=== PATIENT | male | born 1975 | race Caucasian/White ===

== ENCOUNTER 2017-06-13 01:30 | Emergency (ER) | payer BC ==
[~2017-06-13] VITALS: Ht 185.4 cm; Wt 129.3 kg
--- NOTE | ~2017-06-13 | EKG ---
PATIENT: RONNY RO UNIT #: [id number] Ventricular Rate: 101 BPM Atrial Rate: 101 BPM P-R Interval: 148 ms QRS Duration: 94 ms Q-T Interval: 366 ms QTC Calculation(Bezet): 474 ms P [place]: 58 degrees Calculated R [place]: 98 degrees Calculated T [place]: 52 degrees Diagnosis Line: Sinus tachycardia Diagnosis Line: Rightward axis Diagnosis Line: Low voltage QRS Diagnosis Line: Borderline ECG Diagnosis Line: No previous ECGs available Diagnosis Line: Confirmed by HILTON DIAZ MD ([id number]) on Diagnosis Line: 06/14/2017 8:28:05 AM INTERPRETING MD: JOE DEL CID
--- NOTE | ~2017-06-13 | CR72 ---
[facility] A Service of [facility] RADIOLOGY TEXT RESULTS PATIENT: RONNY RO LOCATION: [facility] : 77 UNIT #: [id number] AGE: [address]: Tor Rizvi DO SEX: M ORDER DR: [id number] [facility] [address] [place], [place] [address] [id number] E MR#: [id number] Acc #: [id number] NAME: RONNY RO : 1975 SEX: M STUDY DATE/TIME: 06/13/2017 2:15 UNIT: [facility] ROOM: STUDY DESCRIPTION: CR Chest Single View Portable Attending Physician: Tor Rizvi D.O. Ordering Physician: Ed Roddy Cooper M.D. Primary Care Physician: Joseph Wolff M.D. MEDICAL IMAGING REPORT This report is preliminary unless electronic signature is present EXAM Portable chest. INDICATIONS Chest pain and shortness of air tonight. PROCEDURE Frontal view of the chest. FINDINGS Upper limits of normal heart size. No dense consolidation pleural fluid or pneumothorax. IMPRESSION No active process. Dictated by... Froylan Courtney M.D. THIS IS AN ELECTRONICALLY VERIFIED REPORT Froylan Courtney M.D. at 06/13/2017 9:50 PM EED/bd TD: 06/13/2017 13:44 JOB #: [id number] MEDICAL IMAGING REPORT Page 1 of 1 COPY
[2017-06-13] MEDS ORDERED: SYNTHROID0.05 MG PO (03:08)
[2017-06-13] MEDS ORDERED: MOBIC PO (03:08)
[2017-06-13] MEDS ORDERED: PERCOCET10 PO (03:09)
[2017-06-13] MEDS ORDERED: LISINOPRIL20 MG PO (03:09)
[2017-06-13] MEDS ORDERED: XANAX2 MG PO (03:09)
[2017-06-13 03:19] LABS: POC - TROPONIN <0.05 ng/mL (<=0.05)
[2017-06-13 03:32] LABS: BASOPHIL# 0.1 X10e3 (0-0.3); BASOPHIL% 0.7 % (0-2.5); EOSINOPHIL# 0.1 X10e3 (0-0.7); EOSINOPHIL% 1.1 % (0.0-7.0); HEMATOCRIT 50.2 % (38.0-50.0); HEMOGLOBIN 16.6 gm/dL (13.0-16.0); LYMPHOCYTE# 1.6 X10e3 (1.0-3.5); LYMPHOCYTE% 14.7 % (17.0-45.0); MEAN CELL VOLUME 95.2 FL (83-96); MEAN CORPUSCULAR HEMOGLOBIN 31.5 PG (28-34); MEAN CORPUSCULAR HGB CONC 33.1 g/dL (30-36); MEAN PLATELET VOLUME 8.2 FL (6.5-11.5); MONOCYTE# 0.6 X10e3 (0-1.0); MONOCYTE% 5.6 % (3.0-12.0); NEUTROPHIL# 8.4 X10e3 (1.5-7.1); NEUTROPHIL% 77.9 % (40-75); PLATELET COUNT 386 X10e3 (140-420); RED BLOOD COUNT 5.27 X10e (3.90-5.60); RED CELL DISTRIBUTION WIDTH 13.5 % (11.0-15.5); WHITE BLOOD COUNT 10.8 X10e3 (4.0-10.5)
[2017-06-13 03:33] LABS: DIFF IND NO
[2017-06-13 03:54] LABS: ALBUMIN SERUM 4.1 g/dL (3.5-5.0); BILIRUBIN, DIRECT 0.2 mg/dL (0.0-0.2); BILIRUBIN,INDIRECT 0.5 mg/dL (0.0-0.9); BILIRUBIN,TOTAL 0.7 mg/dL (0.2-2.0); BUN/CREATININE RATIO 16.25; CALCIUM SERUM 8.9 mg/dL (8.4-10.2); CREATININE SERUM 0.8 mg/dL (0.6-1.4); GLOM FILT RATE Estimated 111.8 mL/min (>60); POTASSIUM 3.6 mmol/L (3.5-5.1)
[2017-06-13 04:53] LABS: POC - CKMB 1.1 ng/mL (0.0-7.9); POC - TROPONIN <0.05 ng/mL (<=0.05)
== END 2017-06-13 05:11 | disposition left against medical advice (07) ==
LOC: CED 01:30
PROVIDERS: Emergency Medicine
DX: R07.9 Chest pain, unspecified (principal); R06.02 Shortness of breath; F41.9 Anxiety disorder, unspecified; I10 Essential (primary) hypertension; E03.9 Hypothyroidism, unspecified; F17.200 Nicotine dependence, unspecified, uncomplicated; Z79.899 Other long term (current) drug therapy
CPT/HCPCS: 36415; 71010; 80048; 80076; 82553; 84484; 85025; 85379; 93005; 99285